=== PATIENT | female | born 1985 | race Hispanic/Latino ===

== ENCOUNTER 2018-09-18 18:07 | Emergency (ER) | payer BC ==
--- NOTE | 2018-09-18 19:02 | Emergency Department Report ---
HPI - General Chief Complaint: Alcohol Time Seen by Provider: 09/18/18 18:26 - HPI HPI: Room 5 The patient is a 32-year-old female presenting with a chief complaint of alcoholism. The patient has a history of daily alcohol consumption going through approximately 1-1.5 bottles of wine daily. Patient's last consumption was this evening at approximately 17:00. Family at bedside states they went to [facility] to enter the program and they were referred to the ED for evaluation. Patient currently denies complaints Location: Mental state Duration: [See above] Quality: [See above] Severity: Moderate Modifying factors: [see above] Context: [see above] Mode of transportation: [not driving] ED Past Medical Hx - Past Medical History Additional medical history: Bulemia - Surgical History Past Surgical History?: No - Family History Family history: no significant - Social History Smoking Status: Never Smoker Substance Use Type: None (denies illicit drug use), Alcohol (1-1.5 bottles of wine daily) ED Review of Systems ROS: Stated complaint: DETOX Other details as noted in HPI Constitutional: no symptoms reported Eyes: denies: eye pain ENT: denies: throat pain Respiratory: no symptoms reported Cardiovascular: denies: chest pain Endocrine: no symptoms reported Gastrointestinal: denies: abdominal pain Genitourinary: denies: dysuria Musculoskeletal: denies: back pain Skin: denies: lesions Neurological: denies: headache Physical Exam - Physical Exam Vital Signs: Vital Signs 09/18/18 09/18/18 09/18/18 18:12 18:26 18:30 Temperature 97.8 F Pulse Rate 80 91 H 90 Respiratory 18 18 18 Rate Blood Pressure 118/86 101/71 O2 Sat by Pulse 98 97 97 Oximetry 09/18/18 18:45 Temperature Pulse Rate 85 Respiratory 16 Rate Blood Pressure 103/73 O2 Sat by Pulse 98 Oximetry Physical Exam: GENERAL: The patient is well-developed well-nourished female lying on stretcher not appearing to be in acute distress. [] HEENT: Normocephalic. Atraumatic. Extraocular motions are intact. Patient has moist mucous membranes. NECK: Supple. Trachea midline CHEST/LUNGS: Clear to auscultation. There is no respiratory distress noted. HEART/CARDIOVASCULAR: Regular. There is no tachycardia. There is no gallop rub or murmur. ABDOMEN: Abdomen is soft, nontender. Patient has normal bowel sounds. There is no abdominal distention. SKIN: There is no rash. There is no edema. There is no diaphoresis. NEURO: The patient is awake, alert, and oriented. The patient is cooperative. The patient has no focal neurologic deficits. The patient has normal speech. Cranial nerves II through XII grossly intact, no drift. No tremulousness noted MUSCULOSKELETAL: There is no evidence of acute injury. ED Course Vital Signs 09/18/18 09/18/18 09/18/18 18:12 18:26 18:30 Temperature 97.8 F Pulse Rate 80 91 H 90 Respiratory 18 18 18 Rate Blood Pressure 118/86 101/71 O2 Sat by Pulse 98 97 97 Oximetry 09/18/18 18:45 Temperature Pulse Rate 85 Respiratory 16 Rate Blood Pressure 103/73 O2 Sat by Pulse 98 Oximetry - Consultations Consultation #1: 09/18/18 19:10 Case discussed with [facility] healthcare economics consultant Ira. States she discussed the case with [facility] and says she was sent here because her alcohol level was 2. They will accept the patient back for detox once her alcohol level decreases to less than 0.2 ED Medical Decision Making - Lab Data Result diagrams: 09/18/18 19:10 09/18/18 19:10 - Differential Diagnosis alcoholism Critical care attestation.: If time is entered above; I have spent that time in minutes in the direct care of this critically ill patient, excluding procedure time. ED Disposition Clinical Impression: Alcoholism Disposition: [id number] PSY HOSP/PSY UNIT Is pt being admited?: No Does the pt Need Aspirin: No Condition: Stable Referrals: JULIUS BANKS MD [Staff Physician] - 3-5 Days
[2018-09-18] MEDS ORDERED: VITAMIN B-1 100 MG, FOLVITE 1 MG, INFUVITE 10 ML, MAGNESIUM SULFATE 2 GM in NACL 0.9% 1... IV ONE (19:07)
[2018-09-18 19:19] LABS: Hematocrit 44.3 % (30.3-42.9); Hemoglobin 14.9 gm/dl (10.1-14.3); Mean Corpuscular HGB Conc 34 % (30-34); Mean Corpuscular Volume 101 fl (79-97); Platelet Count 217 K/mm3 (140-440); Red Blood Count 4.39 M/mm3 (3.65-5.03); Red Cell Distribution Width 13.4 % (13.2-15.2)
[2018-09-18 19:22] LABS: Bilirubin,Urine NEG (Negative); Blood,Urine NEG (Negative); Color,Urine Straw (Yellow); Protein,Urine <15 mg/dL mg/dL (Negative); Urobilinogen,Urine < 2.0 mg/dL (<2.0); WBC,Urine < 1.0 /HPF (0.0-6.0)
[2018-09-18 19:36] LABS: Amphetamine Screen,Urine PRESUMPTIVE NEGATIVE; Benzodiazepines Screen,Urine PRESUMPTIVE NEGATIVE; Cannabinoid Screen,Urine PRESUMPTIVE NEGATIVE; Cocaine Screen,Urine PRESUMPTIVE NEGATIVE; Methadone Screen,Urine PRESUMPTIVE NEGATIVE; Opiate Screen,Urine PRESUMPTIVE NEGATIVE
[2018-09-18 20:15] LABS: Alanine Aminotransferase 12 units/L (7-56); Albumin 4.4 g/dL (3.9-5); BUN/Creatinine Ratio 9; Blood Urea Nitrogen 7 mg/dL (7-17); Calcium 8.9 mg/dL (8.4-10.2); Hemolysis Index 6
[2018-09-18 21:43] LABS: Basophils % (Manual) 0 % (0.0-1.8); Eosinophils % (Manual) 0 % (0.0-4.3); Total Cells Counted 100
[2018-09-18 21:44] LABS: Anisocytosis 1+; Platelet Estimate Consistent w Auto
[2018-09-18] MEDS ORDERED: ATIVAN IV PRN ×3 (22:53)
[2018-09-18] MEDS ORDERED: NACL 0.9% 1000 ML 1,000 ML ONE (23:06)
[2018-09-19 01:29] VITALS: BP 87/55
[2018-09-19] MEDS ORDERED: NACL 0.9% 1000 ML 2,000 ML IV ONE (01:32)
== END 2018-09-19 03:17 ==
LOC: ED 18:07 → EEVIPCON 18:07 → ED 09-19 03:17
DX: F10.20 Alcohol dependence, uncomplicated (principal)
CPT/HCPCS: 36415; 80053; 80307; 81001; 85007; 85025; 96365; 96366; 99283; G0480; J3411; J3475; J7030; 80320